=== PATIENT | female | born 1995 | race Two or more races ===

== ENCOUNTER 2019-07-03 08:05 | Inpatient (IN) | payer OTHER ==
[~2019-07-03] VITALS: Ht 160 cm; Wt 47.6 kg
[2019-07-03 09:24] LABS: MEAN CORPUSCULAR VOLUME 67.7 fL (81.0-99.0); MEAN PLATELET VOLUME 7.6 fl (7.4-10.4); MONOCYTES % 4.6 % (2.0-8.0); NEUTROPHILS % 60.4 % (40.0-76.0); PLATELET 396 x1000/uL (130-400); RED BLOOD CELL COUNT 2.45 mill/uL (4.2-5.4); RED CELL DISTRIBUTION WIDTH 24.3 % (11.6-14.6)
[2019-07-03 09:28] LABS: HEMOGLOBIN. 5.1 g/dL (12.0-16.0)
[2019-07-03 09:29] LABS: CHLORIDE 107 mEq/L (98-107); HEMATOCRIT. 16.6 % (36.0-48.0)
[2019-07-03 09:32] LABS: PROTHROMBIN TIME 10.7 sec (9.6-11.0)
[2019-07-03 09:40] LABS: B-HCG QUANTITATIVE < 1 mIU/mL (<3)
[2019-07-03 09:53] LABS: CLARITY URINE TURBID (CLEAR); COLOR URINE ORANGE (YELLOW); KETONES URINE NEGATIVE (NEGATIVE); LEUKOCYTE ESTERASE URINE TRACE (NEGATIVE); NITRITE URINE NEGATIVE (NEGATIVE); OCCULT BLOOD URINE 3+ (NEGATIVE); PROTEIN URINE 1+ (NEGATIVE); SPECIFIC GRAVITY URINE 1.033 (1.005-1.030); UROBILINOGEN URINE 0.2 E.U./dL (0.2-1.0)
[2019-07-03] MEDS ORDERED: SODIUM CHLORIDE 0.9% 1,000 ML IV ONE ×2 (10:00→14:29)
[2019-07-03 10:01] LABS: PLATELET ESTIMATE NORMAL
[2019-07-03] MEDS ORDERED: NA PHOS,M-B/NA PHOS,DI-BA ENEMA 118ML PR PRN (12:00)
[2019-07-03] MEDS ORDERED: HYDROCODONE/ACETAMINOPHEN 5/325MG TABLET PO PRN (12:00)
[2019-07-03] MEDS ORDERED: DIPHENHYDRAMINE 50MG/ML VIAL IV PRN (12:00)
[2019-07-03] MEDS ORDERED: DOCUSATE SODIUM 100MG CAPSULE PO PRN (12:00)
[2019-07-03] MEDS ORDERED: HYDROMORPHONE HCL/PF 2MG/ML CPJ IV PRN (12:00)
[2019-07-03] MEDS ORDERED: MAGNESIUM/ALUMINUM HYDROXIDE/SIMETHICONE 30ML UDC PO PRN (12:00)
[2019-07-03] MEDS ORDERED: LORAZEPAM 2MG/ML CPJ IV PRN (12:00)
[2019-07-03] MEDS ORDERED: GUAIFENESIN 200MG/10ML SUGAR FREE UDC PO PRN (12:00)
[2019-07-03] MEDS ORDERED: CLONIDINE 0.1MG TABLET PO PRN (12:00)
[2019-07-03] MEDS ORDERED: IPRATROPIUM/ALBUTEROL 0.5-3(2.5)MG/3ML NEB NEB PRN (12:00)
[2019-07-03] MEDS ORDERED: ONDANSETRON HCL 4MG/2ML INJ IV PRN (12:00)
[2019-07-03] MEDS: ACETAMINOPHEN 325MG TABLET PO PRN (15:49)
[2019-07-03 18:31] LABS: CHLORIDE 113 mEq/L (98-107)
[2019-07-03] MEDS ORDERED: SODIUM CHLORIDE 0.45% 1,000 ML IV SCH (22:30)
[2019-07-03 23:39] VITALS: BP 112/75
[2019-07-04] VITALS: BP 100/59
[2019-07-04 04:00] VITALS: BP 111/65
[2019-07-04 06:41] LABS: CHLORIDE 112 mEq/L (98-107)
[2019-07-04 06:58] LABS: BASOPHILS % 0.7 % (0.0-2.0); EOSINOPHILS % 2.1 % (0.0-5.0); HEMATOCRIT. 36.5 % (36.0-48.0); LYMPHOCYTES % 26.7 % (20.0-50.0); MEAN CORPUSCULAR HEMOGLOBIN 24.7 pg (28.0-32.0); MEAN CORPUSCULAR VOLUME 77.4 fL (81.0-99.0); MEAN PLATELET VOLUME 7.9 fl (7.4-10.4); MONOCYTES % 13.6 % (2.0-8.0); NEUTROPHILS % 56.9 % (40.0-76.0); PLATELET 288 x1000/uL (130-400); RED BLOOD CELL COUNT 4.71 mill/uL (4.2-5.4); RED CELL DISTRIBUTION WIDTH 23.9 % (11.6-14.6)
[2019-07-04 07:07] LABS: HEMOGLOBIN. 11.6 g/dL (12.0-16.0)
[2019-07-04 07:09] LABS: HDL CHOLESTEROL 43 mg/dL (40-59)
[2019-07-04 07:10] LABS: LDL CHOLESTEROL 51 mg/dL (5-100); T4 FREE 1.02 ng/dL (0.76-1.46)
[2019-07-04 08:00] VITALS: BP 118/84
[2019-07-04] MEDS: ACETAMINOPHEN 325MG TABLET PO PRN (11:51)
[2019-07-04 14:05] VITALS: BP 97/57
[2019-07-04 14:30] VITALS: BP 98/62
== END 2019-07-04 14:45 | disposition home or self-care (01) | DRG 564 ==
LOC: ER 08:05 → 7WST 11:26 → ENRESERV 19:22
PROVIDERS: ADMIT Internal Medicine; ATTEND Internal Medicine
PROC: 30233N1 Transfusion of Nonautologous Red Blood Cells into Peripheral Vein, Percutaneous Approach (ICD-10-PCS; principal; 2019-07-03)
DX: O03.6 Delayed or excessive hemorrhage following complete or unspecified spontaneous abortion (principal); D64.9 Anemia, unspecified; O03.83 Metabolic disorder following complete or unspecified spontaneous abortion; E87.6 Hypokalemia
CPT/HCPCS: 36415; 76801; 80048; 80053; 80061; 81003; 84439; 84443; 84484; 84702; 85025; 86850; 86900; 86920; 99291; J7030; P9016; P9021

== ENCOUNTER 2020-04-27 13:54 | Emergency (ER) | payer MEDICAID, OTHER ==
[~2020-04-27] VITALS: Ht 160 cm; Wt 48.0 kg
[2020-04-27 16:11] LABS: HEMATOCRIT. 40.1 % (36.0-48.0); HEMOGLOBIN. 13.2 g/dL (12.0-16.0); MEAN CORPUSCULAR HEMOGLOBIN 29.3 pg (28.0-32.0); MEAN CORPUSCULAR VOLUME 89.3 fL (81.0-99.0); MEAN PLATELET VOLUME 7.7 fl (7.4-10.4); PLATELET 284 x1000/uL (130-400); RED BLOOD CELL COUNT 4.49 mill/uL (4.2-5.4); RED CELL DISTRIBUTION WIDTH 15.2 % (11.6-14.6)
[2020-04-27 16:16] LABS: CHLORIDE 108 mEq/L (98-107)
[2020-04-27 16:19] LABS: CLARITY URINE CLEAR (CLEAR); COLOR URINE YELLOW (YELLOW); KETONES URINE 3+ (NEGATIVE); LEUKOCYTE ESTERASE URINE 1+ (NEGATIVE); NITRITE URINE NEGATIVE (NEGATIVE); OCCULT BLOOD URINE 1+ (NEGATIVE); PROTEIN URINE NEGATIVE (NEGATIVE); SPECIFIC GRAVITY URINE 1.026 (1.005-1.030); UROBILINOGEN URINE 0.2 E.U./dL (0.2-1.0)
[2020-04-27 16:21] LABS: HCG SCREEN POSITIVE
[2020-04-27 16:22] LABS: INR 1.1; PROTHROMBIN TIME 11.3 sec (9.6-11.0)
[2020-04-27 16:59] LABS: PLATELET ESTIMATE NORMAL
[2020-04-27] MEDS ORDERED: METOCLOPRAMIDE HCL 10MG TABLET PO ONE (19:15)
[2020-04-27 19:35] VITALS: BP 115/54
== END 2020-04-27 19:49 | disposition home or self-care (01) ==
LOC: ER 13:54
DX: O23.41 Unspecified infection of urinary tract in pregnancy, first trimester (principal); B96.89 Other specified bacterial agents as the cause of diseases classified elsewhere; O34.81 Maternal care for other abnormalities of pelvic organs, first trimester; N83.11 Corpus luteum cyst of right ovary; D27.1 Benign neoplasm of left ovary; Z3A.01 Less than 8 weeks gestation of pregnancy
CPT/HCPCS: 36415; 76801; 76817; 80048; 80076; 81003; 81025; 83690; 84702; 84703; 85025; 85610; 86900; 86901; 93005; 99285; J8597

== ENCOUNTER 2020-05-04 10:32 | Day surgery (SDC) | payer OTHER ==
[~2020-05-04] VITALS: Ht 160 cm; Wt 45.0 kg
[2020-05-04] MEDS ORDERED: SODIUM CHLORIDE 0.9% 1,000 ML IV ONE (10:45)
[2020-05-04 12:12] LABS: BASOPHILS % 0.2 % (0.0-2.0); EOSINOPHILS % 0.3 % (0.0-5.0); HEMATOCRIT. 29.6 % (36.0-48.0); LYMPHOCYTES % 19.5 % (20.0-50.0); MEAN CORPUSCULAR HEMOGLOBIN 29.7 pg (28.0-32.0); MEAN CORPUSCULAR VOLUME 88.2 fL (81.0-99.0); MEAN PLATELET VOLUME 8.5 fl (7.4-10.4); MONOCYTES % 6.3 % (2.0-8.0); NEUTROPHILS % 73.7 % (40.0-76.0); PLATELET 265 x1000/uL (130-400); RED BLOOD CELL COUNT 3.35 mill/uL (4.2-5.4); RED CELL DISTRIBUTION WIDTH 15.3 % (11.6-14.6)
[2020-05-04 12:23] LABS: CHLORIDE 109 mEq/L (98-107)
[2020-05-04] MEDS ORDERED: CEFAZOLIN 1000MG PREMIX 50 ML IV ONE (12:45)
[2020-05-04 12:47] LABS: B-HCG QUANTITATIVE 8949 mIU/mL (<3)
[2020-05-04 12:48] LABS: HCG SCREEN POSITIVE
[2020-05-04 12:52] LABS: INR 1.1; PROTHROMBIN TIME 11.4 sec (9.6-11.0)
[2020-05-04 13:10] VITALS: BP 106/66
[2020-05-04] MEDS ORDERED: VASOPRESSIN 20 UNIT/ML 1ML ONE (13:53)
[2020-05-04] MEDS ORDERED: BUPIVACAINE HCL/PF 0.5% (5MG/ML) 10ML ONE (13:53)
[2020-05-04] MEDS ORDERED: SUCCINYLCHOLINE CHLORIDE 200MG/10ML IV ONE (14:40)
[2020-05-04] MEDS ORDERED: FENTANYL CITRATE/PF 50MCG/ML 2ML VIAL ONE ×2 (14:40→15:11)
[2020-05-04] MEDS ORDERED: PHENYLEPHRINE HCL 10 MG/ML 1ML (IV VIAL) IV ONE (14:40)
[2020-05-04] MEDS ORDERED: EPHEDRINE SULFATE 50MG/ML VIAL ONE (14:40)
[2020-05-04] MEDS ORDERED: ROCURONIUM BROMIDE 10MG/ML VIAL 5ML IV ONE (14:40)
[2020-05-04] MEDS ORDERED: MIDAZOLAM HCL 2 MG/2 ML VIAL ONE ×2 (14:40→15:47)
[2020-05-04] MEDS ORDERED: PROPOFOL 200MG/20ML VIAL IV ONE (14:40)
[2020-05-04] MEDS ORDERED: NEOSTIGMINE METHYLSULFATE 1MG/ML 10 ML VIAL ONE (14:40)
[2020-05-04] MEDS ORDERED: GLYCOPYRROLATE 0.2 MG/ML 2ML VIAL ONE (14:40)
[2020-05-04] MEDS ORDERED: SODIUM CHLORIDE 0.9% 10ML VIAL ONE (14:40)
[2020-05-04] MEDS ORDERED: CEFAZOLIN SODIUM 1000MG/VIAL ONE (14:40)
[2020-05-04] MEDS ORDERED: ONDANSETRON HCL 4MG/2ML INJ ONE (14:41)
[2020-05-04] MEDS ORDERED: DEXAMETHASONE 4MG/ML 1ML VIAL ONE (14:41)
[2020-05-04] MEDS ORDERED: METOCLOPRAMIDE HCL 10MG/2ML VIAL ONE (14:41)
[2020-05-04] MEDS ORDERED: IBUP-2030 MT (15:26)
[2020-05-04] MEDS ORDERED: MULT-1116 MT (15:26)
[2020-05-04] MEDS ORDERED: FERR325T6 MT (15:26)
[2020-05-04] MEDS ORDERED: ONDANSETRON HCL 4MG/2ML INJ IV PRN (15:30)
[2020-05-04] MEDS ORDERED: HYDROCODONE/ACETAMINOPHEN 5/325MG TABLET PO PRN (15:30)
[2020-05-04] MEDS ORDERED: DIPHENHYDRAMINE 50MG/ML VIAL ONE (15:49)
[2020-05-04] MEDS ORDERED: DEXT 5%/0.45% NACL KCL 20MEQ/L 1,000 ML IV SCH (16:00)
[2020-05-04] MEDS ORDERED: KETOROLAC 60MG/2ML VIAL IM ONE (16:30)
== END 2020-05-04 18:45 | disposition home or self-care (01) ==
LOC: ER 10:43 → EDBEDREQ 12:49 → EDBEDREQTM 12:49 → CANRESERV 13:02 → ENRESERV 13:02 → OR 15:45 → CANBEDREQ 20:44
PROVIDERS: ATTEND Specialist
DX: O03.4 Incomplete spontaneous abortion without complication (principal); N93.9 Abnormal uterine and vaginal bleeding, unspecified; N83.201 Unspecified ovarian cyst, right side; D64.9 Anemia, unspecified; F41.9 Anxiety disorder, unspecified; F12.10 Cannabis abuse, uncomplicated; Z20.828 Contact with and (suspected) exposure to other viral communicable diseases; Z79.899 Other long term (current) drug therapy; Z98.890 Other specified postprocedural states
CPT/HCPCS: 36415; 59812; 76801; 80053; 84702; 84703; 85025; 85610; 86850; 86900; 86901; 86920; 87426; 88305; 93005; 96360; 96361; 99285; J0330; J0690; J1100; J1200; J2250; J2370; J2405; J2704; J2710; J2765; J3010; J3490; J7030

== ENCOUNTER 2020-05-05 12:25 | Emergency (ER) | payer OTHER ==
[~2020-05-05] VITALS: Ht 157.5 cm; Wt 51.0 kg
[~2020-05-05 12:25] MED LIST: FERR325T6 MT; IBUP-2030 MT; MULT-1116 MT
[2020-05-05] MEDS ORDERED: ONDANSETRON HCL 4MG/2ML INJ IV ONE (13:15)
[2020-05-05] MEDS ORDERED: MORPHINE SULFATE 4 MG/ML CPJ (NOT FOR IM USE) IV ONE (13:15)
[2020-05-05] MEDS ORDERED: SODIUM CHLORIDE 0.9% 1,000 ML IV ONE (13:15)
[2020-05-05 13:31] VITALS: BP 112/51
[2020-05-05 13:45] LABS: BASOPHILS % 0.1 % (0.0-2.0); EOSINOPHILS % 0.1 % (0.0-5.0); HEMATOCRIT. 28.4 % (36.0-48.0); HEMOGLOBIN. 9.6 g/dL (12.0-16.0); LYMPHOCYTES % 24.5 % (20.0-50.0); MEAN CORPUSCULAR HEMOGLOBIN 29.7 pg (28.0-32.0); MEAN CORPUSCULAR VOLUME 87.8 fL (81.0-99.0); MEAN PLATELET VOLUME 8.5 fl (7.4-10.4); MONOCYTES % 10.8 % (2.0-8.0); NEUTROPHILS % 64.5 % (40.0-76.0); PLATELET 288 x1000/uL (130-400); RED BLOOD CELL COUNT 3.24 mill/uL (4.2-5.4)
[2020-05-05 13:50] LABS: CHLORIDE 111 mEq/L (98-107)
[2020-05-05 14:22] LABS: B-HCG QUANTITATIVE 3714 mIU/mL (<3)
[2020-05-05] MEDS ORDERED: MISOPROSTOL 200MCG TABLET PO ONE (16:15)
== END 2020-05-05 16:37 | disposition home or self-care (01) ==
LOC: ER 12:25
DX: N93.9 Abnormal uterine and vaginal bleeding, unspecified (principal); F12.10 Cannabis abuse, uncomplicated
CPT/HCPCS: 36415; 76830; 76856; 80053; 84702; 85025; 86850; 86900; 86901; 96361; 96374; 96375; 99284; J2270; J2405; J7030; Z7610